=== PATIENT | female | born 1985 | race Native Hawaiian/Other Pacific Islander ===

== ENCOUNTER 2019-08-26 15:25 | Outpatient (CLI) | payer BC | END 2019-08-26 19:47 | disposition home or self-care (01) | LOC: RAD 15:25 | DX: M25.561 Pain in right knee (principal) ==

== ENCOUNTER 2019-09-29 13:55 | Outpatient (CLI) | payer BC | END 2019-09-29 20:54 | disposition home or self-care (01) | LOC: MRI 13:55 | DX: M25.561 Pain in right knee (principal) ==

== ENCOUNTER 2020-07-03 15:36 | Emergency (ER) | payer BC ==
[~2020-07-03] VITALS: Ht 147.3 cm; Wt 70.3 kg
[2020-07-03 15:48] VITALS: BP 122/80; TEMP 97.9
== END 2020-07-03 16:47 | disposition home or self-care (01) ==
LOC: ED 15:36
PROC: 09C37ZZ Extirpation of Matter from Right External Auditory Canal, Via Natural or Artificial Opening (ICD-10-PCS; principal; 2020-07-03)
DX: T16.1XXA Foreign body in right ear, initial encounter (principal)
CPT/HCPCS: 99282

== ENCOUNTER → 2020-10-08 | Outpatient (CLI) | payer BC, OTHER | LOC: INF 08:46 | PROVIDERS: ATTEND Internal Medicine | DX: Z23 Encounter for immunization (principal) | CPT/HCPCS: 96372 ==

== ENCOUNTER 2020-11-01 09:13 | Outpatient (CLI) | payer BC, OTHER | END 2020-11-01 23:59 | disposition home or self-care (01) | LOC: INF 09:13 | PROVIDERS: ATTEND Internal Medicine | DX: Z23 Encounter for immunization (principal) | CPT/HCPCS: 96372 ==